=== PATIENT | female | born 1970 | race Caucasian/White ===

== ENCOUNTER 2020-05-05 19:48 | Emergency (ER) | payer MEDICARE ==
[~2020-05-05] VITALS: Ht 157.5 cm; Wt 59.0 kg
[2020-05-05 20:27] VITALS: BP 134/78
--- NOTE | 2020-05-05 20:32 | NUR ---
AMELIE CAROLINA AT BEDSIDE
[2020-05-05] MEDS ORDERED: FLUORESCEIN SODIUM OPHTH 1 EA STRIP ONE (20:33)
--- NOTE | 2020-05-05 21:08 | NUR ---
Patient discharged to home in stable condition. Written and verbal after care instructions given. Patient verbalizes understanding of instruction.
== END 2020-05-05 21:09 | disposition home or self-care (01) ==
LOC: ER 19:51
DX: H11.32 Conjunctival hemorrhage, left eye (principal); Z98.890 Other specified postprocedural states; Z88.6 Allergy status to analgesic agent; Z88.5 Allergy status to narcotic agent

== ENCOUNTER 2021-11-28 15:02 | Emergency (ER) | payer MEDICARE ==
[~2021-11-28] VITALS: Ht 157.5 cm; Wt 61.2 kg
[2021-11-28 15:11] VITALS: BP 145/90
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
--- NOTE | 2021-11-28 16:08 | NUR ---
Patient discharged to home in stable condition. Written and verbal after care instructions given. Patient verbalizes understanding of instruction.
== END 2021-11-28 16:09 | disposition home or self-care (01) ==
LOC: ER 15:07
DX: S09.90XA Unspecified injury of head, initial encounter (principal); G80.9 Cerebral palsy, unspecified; Z88.5 Allergy status to narcotic agent; Z88.6 Allergy status to analgesic agent; W18.09XA Striking against other object with subsequent fall, initial encounter; Y93.9 Activity, unspecified; Y92.009 Unspecified place in unspecified non-institutional (private) residence as the place of occurrence of the external cause; Y99.8 Other external cause status

== ENCOUNTER 2022-06-21 01:46 | Emergency (ER) | payer MEDICARE ==
[~2022-06-21] VITALS: Ht 157.5 cm; Wt 65.8 kg
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
--- NOTE | 2022-06-21 01:49 | NUR ---
EMT AT BEDSIDE FOR EKG.
--- NOTE | 2022-06-21 02:01 | NUR ---
LAB AT BEDSIDE
--- NOTE | 2022-06-21 02:22 | NUR ---
Patient does not wish to proceed with medical care recommended by Dr. Schrader. Patient given information related to possible complications, up to and including , which could occur as a result of leaving the hospital at this time. Patient verbalizes understanding of risks involved due to leaving against medical advice. Patient has signed AMA form.
--- NOTE | 2022-06-21 02:22 | NUR ---
PT REFUSED BLOOD WORK, MADE AWARE
[2022-06-21 02:23] VITALS: BP 141/81
== END 2022-06-21 02:24 | disposition left against medical advice (07) ==
LOC: ER 01:46
DX: R07.89 Other chest pain (principal); Z98.890 Other specified postprocedural states; Z88.5 Allergy status to narcotic agent; Z88.6 Allergy status to analgesic agent